=== PATIENT | female | born 1960 | race Caucasian/White ===

== ENCOUNTER 2018-04-30 20:20 | Emergency (ER) | payer BC, OTHER ==
[2018-04-30] MEDS: HYDROCODONE/APAP (5/325) TAB PO (20:37)
== END 2018-04-30 21:34 | disposition home or self-care (01) ==
LOC: FTE 20:20
DX: S13.4XXA Sprain of ligaments of cervical spine, initial encounter (principal); R07.9 Chest pain, unspecified; V49.40XA Driver injured in collision with unspecified motor vehicles in traffic accident, initial encounter
CPT/HCPCS: 71250; 72125; 93005; 99284-25